=== PATIENT | female | born 1970 | race Caucasian/White ===

== ENCOUNTER 2018-02-09 07:00 | Inpatient (IN) | payer OTHER ==
[~2018-02-09] VITALS: Ht 160 cm; Wt 75.7 kg
== END 2018-02-20 11:49 | DRG 734 ==
LOC: O/R 02-18 05:45 → SURH 02-18 07:00 → OB/GYN 02-18 20:00
PROVIDERS: Obstetrics & Gynecology Gynecologic Oncology
PROC: 07TC0ZZ Resection of Pelvis Lymphatic, Open Approach (ICD-10-PCS; 2018-02-18)
PROC: 0UT70ZZ Resection of Bilateral Fallopian Tubes, Open Approach (ICD-10-PCS; 2018-02-18)
PROC: 0UT20ZZ Resection of Bilateral Ovaries, Open Approach (ICD-10-PCS; 2018-02-18)
PROC: 0DBW0ZZ Excision of Peritoneum, Open Approach (ICD-10-PCS; 2018-02-18)
PROC: 0DBP0ZZ Excision of Rectum, Open Approach (ICD-10-PCS; 2018-02-18)
PROC: 0UT90ZZ Resection of Uterus, Open Approach (ICD-10-PCS; principal; 2018-02-18 18:00)
DX: C54.1 Malignant neoplasm of endometrium (principal); C78.7 Secondary malignant neoplasm of liver and intrahepatic bile duct; C78.5 Secondary malignant neoplasm of large intestine and rectum; D50.0 Iron deficiency anemia secondary to blood loss (chronic); L40.8 Other psoriasis; N72 Inflammatory disease of cervix uteri; N80.0 Endometriosis of uterus; D25.1 Intramural leiomyoma of uterus